=== PATIENT | female | born 1955 | race Hispanic/Latino ===

== ENCOUNTER 2016-08-05 11:40 | Emergency (ER) | payer MEDICARE ==
[2016-08-05 13:30] LABS: Alanine Aminotransferase 11 units/L (7-56); Albumin 3.4 g/dL (3.9-5); Albumin/Globulin Ratio 0.9 %; Alkaline Phosphatase 98 units/L (35-129); Anion Gap 19 mmol/L; Bilirubin,Direct 0.3 mg/dL (0-0.2); Bilirubin,Indirect 0.3 mg/dL; Bilirubin,Total 0.6 mg/dL (0.1-1.2); Blood Urea Nitrogen 23 mg/dL (7-17); Calcium 8.7 mg/dL (8.4-10.2); Carbon Dioxide 21 mmol/L (22-30); Chloride 93.4 mmol/L (98-107); Glucose 371 mg/dL (65-100); Potassium 4.1 mmol/L (3.6-5.0); Sodium 129 mmol/L (137-145)
[2016-08-05] MEDS ORDERED: ZOFRAN IV ONE (18:20)
[2016-08-05] MEDS ORDERED: NACL 0.9% 1000 ML 1,000 ML IV ONE (18:20)
--- NOTE | 2016-08-05 18:43 | Emergency Department Report ---
HPI - General Chief Complaint: Nausea/Vomiting/Diarrhea Time Seen by Provider: 08/05/16 18:14 - HPI HPI: Room 23 The patient is a 61-year-old female presenting with a chief complaint of nausea. The patient carries a recent diagnosis of pancreatic CA with metastases to liver and is currently on chemotherapy. The patient last received chemotherapy 1 week ago. The patient had experienced nausea but it was controlled with Zofran. The past 2 days of palpitations experienced significant nausea but is not improved with Zofran. Patient denies vomiting. The patient states she has forgotten to take her glipizide for the past 2 days. The patient states for the past 2 days she has noticed dysuria and vaginal yeast and oral thrush. The patient states she contacted her oncologist (Dr. Caldwell) who in turn instructed the patient come to the ED Location: [see above] Duration: [see above] Quality: Nausea Severity: Moderate Modifying factors: [see above] Context: [see above] Mode of transportation: [not driving] ED Past Medical Hx - Past Medical History Hx Diabetes: Yes Additional medical history: pancreatic CA with metastases to the liver - on chemo - Surgical History Additional Surgical History: port-right chest wall,c-sections,hysterectomy - Family History Family history: no significant - Social History Smoking Status: Current Every Day Smoker Substance Use Type: None - Medications Home Medications: Home Medications Medication Instructions Recorded Confirmed Last Taken Type Fluconazole [Diflucan TAB] 200 mg PO QDAY #7 tablet 08/05/16 Unknown Rx Promethazine [Phenergan TAB] 25 mg PO Q6HR PRN #20 tab 08/05/16 Unknown Rx Promethazine [Phenergan] 25 mg AR Q6HR PRN #10 supp.rect 08/05/16 Unknown Rx Zolpidem [Ambien] 5 mg PO QHS PRN #5 tablet 08/05/16 Unknown Rx ED Review of Systems ROS: Stated complaint: HIGH BLOOD SUGAR Other details as noted in HPI Comment: All other systems reviewed and negative Constitutional: denies: chills, fever Eyes: denies: eye pain, eye discharge, vision change ENT: denies: ear pain, throat pain Respiratory: denies: cough, shortness of breath, wheezing Cardiovascular: denies: chest pain, palpitations Endocrine: no symptoms reported Gastrointestinal: nausea, diarrhea. denies: abdominal pain, vomiting Genitourinary: denies: urgency, dysuria, discharge Musculoskeletal: denies: back pain, joint swelling, arthralgia Skin: denies: rash, lesions Neurological: denies: headache, weakness, paresthesias Psychiatric: denies: anxiety, depression Hematological/Lymphatic: denies: easy bleeding, easy bruising Physical Exam - Physical Exam Vital Signs: Vital Signs 08/05/16 12:41 Temperature 98.1 F Pulse Rate 110 H Respiratory 18 Rate Blood Pressure 145/92 O2 Sat by Pulse 100 Oximetry Physical Exam: GENERAL: The patient is well-developed well-nourished []. [] HEENT: Normocephalic. Atraumatic. Extraocular motions are intact. Thrush present on the tongue NECK: Supple. No meningitic signs are noted. Trachea midline CHEST/LUNGS: Clear to auscultation. There is no respiratory distress noted. HEART/CARDIOVASCULAR: Regular. There is no tachycardia. There is no gallop rub or murmur. Dopplerable DP and PT pulse on the right foot ABDOMEN: Abdomen is soft, nontender. Patient has normal bowel sounds. There is no abdominal distention. SKIN: The soles of the toes on the right foot are dark but exhibited normal capillary refill. There is no edema. There is no diaphoresis. NEURO: The patient is awake, alert, and oriented. The patient is cooperative. The patient has normal speech MUSCULOSKELETAL: There is no evidence of acute injury. ED Course Vital Signs 08/05/16 12:41 Temperature 98.1 F Pulse Rate 110 H Respiratory 18 Rate Blood Pressure 145/92 O2 Sat by Pulse 100 Oximetry - Consultations Consultation #1: 08/05/16 20:44 Is discussed with patient's oncologist Dr. Caldwell. Agrees with Silva Charlton and Lauren. States if the patient is stable she may follow up in office tomorrow. Recommends the patient call the office in the morning ED Medical Decision Making - Lab Data Result diagrams: 08/05/16 19:10 08/05/16 12:59 Laboratory Tests 08/05/16 08/05/16 08/05/16 12:33 12:59 12:59 WBC RBC Hgb Hct MCV MCH MCHC RDW Plt Count Lymph % (Auto) [place] % (Auto) Eos % (Auto) Baso % (Auto) Lymph # [place] # Eos # Baso # Seg Neutrophils % Seg Neutrophils # VBG pH 7.448 H Sodium 129 L Potassium 4.1 Chloride 93.4 L Carbon Dioxide 21 L Anion Gap 19 BUN 23 H Creatinine 0.5 L Estimated GFR > 60 BUN/Creatinine Ratio 46.00 Glucose 371 H POC Glucose 329 H Calcium 8.7 Total Bilirubin 0.6 Direct Bilirubin 0.3 H Indirect Bilirubin 0.3 AST 11 ALT 11 Alkaline Phosphatase 98 Total Protein 7.0 Albumin 3.4 L Albumin/Globulin Ratio 0.9 Urine Color Urine Turbidity Urine pH Ur Specific [place] Urine Protein Urine Glucose (UA) Urine Ketones Urine Blood Urine Nitrite Urine Bilirubin Urine Urobilinogen Ur Leukocyte Esterase Urine WBC (Auto) Urine RBC (Auto) U Epithel Cells (Auto) Urine Bacteria (Auto) Urine Mucus 08/05/16 08/05/16 08/05/16 19:10 19:56 20:18 WBC 12.5 H RBC 5.35 H Hgb 14.4 H Hct 44.7 H MCV 84 MCH 27 L MCHC 32 RDW 14.4 Plt Count 206 Lymph % (Auto) 13.7 [place] % (Auto) 7.4 H Eos % (Auto) 2.1 Baso % (Auto) 0.4 Lymph # 1.7 [place] # 0.9 H Eos # 0.3 Baso # 0.1 Seg Neutrophils % 76.4 H Seg Neutrophils # 9.6 H VBG pH Sodium Potassium Chloride Carbon Dioxide Anion Gap BUN Creatinine Estimated GFR BUN/Creatinine Ratio Glucose POC Glucose 227 H Calcium Total Bilirubin Direct Bilirubin Indirect Bilirubin AST ALT Alkaline Phosphatase Total Protein Albumin Albumin/Globulin Ratio Urine Color Yellow Urine Turbidity Clear Urine pH 5.0 Ur Specific [place] 1.033 H Urine Protein 30 mg/dl Urine Glucose (UA) >=500 Urine Ketones Tr Urine Blood Neg Urine Nitrite Neg Urine Bilirubin Neg Urine Urobilinogen < 2.0 Ur Leukocyte Esterase Sm Urine WBC (Auto) 3.0 Urine RBC (Auto) 10.0 U Epithel Cells (Auto) 11.0 Urine Bacteria (Auto) 1+ Urine Mucus 1+ - Differential Diagnosis DKA, chemotherapy-induced nausea, thrush Critical care attestation.: If time is entered above; I have spent that time in minutes in the direct care of this critically ill patient, excluding procedure time. ED Disposition Clinical Impression: Chemotherapy-induced nausea, Thrush Disposition: DISCHARGED TO HOME OR SELFCARE Is pt being admited?: No Does the pt Need Aspirin: No Condition: Stable Instructions: Oral Candidiasis (ED), Acute Nausea and Vomiting (ED) Additional Instructions: Return to the emergency department immediately should you develop worsening symptoms, fever, inability to tolerate food or liquid or any other concerns. Prescriptions: Fluconazole [Diflucan TAB] 200 mg PO QDAY #7 tablet Promethazine [Phenergan TAB] 25 mg PO Q6HR PRN #20 tab PRN Reason: Nausea Promethazine [Phenergan] 25 mg AR Q6HR PRN #10 supp.rect PRN Reason: Vomiting Zolpidem [Ambien] 5 mg PO QHS PRN #5 tablet PRN Reason: Sleep Referrals: QUIQUE GORMAN MD [Primary Care Provider] - 3-[address] Caldwell, oncologist [Other] - 08/06/16 Time of Disposition: 20:45
[2016-08-05 19:30] LABS: Basophils % (Auto) 0.4 % (0.0-1.8); Eosinophils % (Auto) 2.1 % (0.0-4.3); Hematocrit 44.7 % (30.3-42.9); Hemoglobin 14.4 gm/dl (10.1-14.3); Mean Corpuscular HGB Conc 32 % (30-34); Mean Corpuscular Hemoglobin 27 pg (28-32); Mean Corpuscular Volume 84 fl (79-97); Platelet Count 206 K/mm3 (140-440); Red Blood Count 5.35 M/mm3 (3.65-5.03); Red Cell Distribution Width 14.4 % (13.2-15.2); White Blood Count 12.5 K/mm3 (4.5-11.0)
[2016-08-05 20:37] LABS: Bacteria,Urine 1+ /HPF (Negative); Bilirubin,Urine NEG (Negative); Blood,Urine NEG (Negative); Ketones,Urine TR mg/dL (Negative); Leukocyte Esterase,Urine SM (Negative); Mucus,Urine 1+ /HPF; Nitrite,Urine NEG (Negative); Urobilinogen,Urine < 2.0 mg/dL (<2.0)
[2016-08-05 20:56] VITALS: BP 142/76
== END 2016-08-05 21:23 | disposition home or self-care (01) ==
LOC: ED 11:40
DX: R11.0 Nausea (principal); B37.0 Candidal stomatitis; E11.9 Type 2 diabetes mellitus without complications; C25.7 Malignant neoplasm of other parts of pancreas; C78.7 Secondary malignant neoplasm of liver and intrahepatic bile duct; Z90.710 Acquired absence of both cervix and uterus; F17.200 Nicotine dependence, unspecified, uncomplicated
CPT/HCPCS: 36415; 80048; 80074; 81001; 82805; 82962; 85025; 96361; 96374; 99283; J2405; J7030